=== PATIENT | female | born 1995 | race Caucasian/White ===

== ENCOUNTER 2020-09-01 14:14 | Emergency (ER) | payer BC ==
[~2020-09-01] VITALS: Ht 162.6 cm; Wt 62.6 kg
[2020-09-01 14:35] VITALS: BP 111/60
--- NOTE | 2020-09-01 14:41 | NUR ---
PT AMBULATORY TO LOBBY TO A/W BED. URINE SPECIMEN PROVIDED
--- NOTE | 2020-09-01 14:58 | NUR ---
Patient ambulated to bed 4. RN evaluating the patient at bedside.
--- NOTE | 2020-09-01 15:03 | NUR ---
25 Y/O FEMALE C/O LOWER ABDOMINAL PAIN WITH MILD CRAMPING AND D/C. DENIES VAGINAL BLEED. LMP 04/2020, 18 WEEKS , . ABD SOFT NON TENDER. PT STATES 5/10 CRAMPING PAIN RADIATING TO RT LOWER BACK. RX: TYLENOL WITH NO RELIEF MEDHX- NONE NKA
[2020-09-01 15:12] LABS: BASOPHILS % (AUTO) 0.3 % (0.0-2.0); EOSINOPHILS # (AUTO) 0.1 K/uL (0-0.4); EOSINOPHILS % (AUTO) 1.2 % (0.0-4.0); HEMATOCRIT 34.1 % (36-48); HEMOGLOBIN 11.5 g/dL (12.0-16.0); LYMPHOCYTES # (AUTO) 2.1 K/uL (2.5-16.5); LYMPHOCYTES % (AUTO) 27.3 % (20.5-51.1); MEAN CORPUSCULAR HEMOGLOBIN 32 pg (27-31); MEAN CORPUSCULAR HGB CONC 34 g/dL (33-37); MEAN CORPUSCULAR VOLUME 93.8 fL (80-94); MONOCYTES # (AUTO) 0.5 K/uL (0.8-1.0); MONOCYTES % (AUTO) 6.4 % (1.7-9.3); NEUTROPHILS # (AUTO) 5.1 K/uL (1.8-7.7); NEUTROPHILS % (AUTO) 64.8 % (42.2-75.2); PLATELET COUNT (AUTO) 216 K/uL (140-450); RED BLOOD CELL COUNT(AUTO) 3.64 MIL/uL (4.20-5.40); RED CELL DISTRIBUTION WIDTH 13.2 % (11.6-13.7); WHITE BLOOD COUNT (AUTO) 7.9 K/uL (4.8-10.8)
[2020-09-01 15:35] LABS: APPEARANCE,URINE SL CLOUDY (CLEAR); BILIRUBIN,URINE NEGATIVE (NEGATIVE); BLOOD, URINE NEGATIVE (NEGATIVE); COLOR,URINE YELLOW (YELLOW); LEUKOCYTE ESTERASE ,URINE 2+ (NEGATIVE); NITRITE, URINE NEGATIVE (NEGATIVE); PH,URINE 5.5 (5.0-9.0); UGLUCOSE NEGATIVE (NEGATIVE)
[2020-09-01 16:02] LABS: RBC,URINE 0-5 /HPF (0-5); WBC,URINE 16-25 (MOD) /HPF (0-5)
[2020-09-01] MEDS ORDERED: CEPH-588 PO (16:18)
--- NOTE | 2020-09-01 16:22 | NUR ---
DR AGOSTO AT BEDSIDE EXAMINING PT
--- NOTE | 2020-09-01 16:30 | NUR ---
DR GAOSTO AT BEDSIDE PERFORMING ULTRASOUND
[2020-09-01 16:42] VITALS: BP 111/60
== END 2020-09-01 16:42 | disposition home or self-care (01) ==
LOC: MED 14:14
DX: O23.02 Infections of kidney in pregnancy, second trimester (principal); Z3A.18 18 weeks gestation of pregnancy
CPT/HCPCS: 36415; 81001; 81025; 84702; 85025; 86900; 86901; 87086; 99284